=== PATIENT | female | born 1955 | race Caucasian/White ===

== ENCOUNTER 2017-01-11 07:15 | Day surgery (SDC) | payer OTHER ==
[~2017-01-11] VITALS: Ht 170.2 cm; Wt 75.3 kg
[~2017-01-11 07:15] MED LIST: AMIT75TA2 PO; ATEN25TA7; CALC-471; ETAN25DI SQ; FOL1; METH2.5T PO; MVI; Percocet; SERT100T; Sodium Chloride LOK Flush 10 mL Syringe IV PRN; fentaNYL-PF 50 mCg/mL 2 mL Inj IVPUSH PRN
[2017-01-11 07:49] VITALS: BP 141/86; PULSE 73; RESP 16; O2SAT 98
[2017-01-11] MEDS: 0.9% Sodium Chloride 1,000 ML IV PRN ×3 (07:56→09:20)
[2017-01-11 09:31] VITALS: BP 109/81; PULSE 65; RESP 14; O2SAT 98
[2017-01-11 09:41] VITALS: BP 133/88; PULSE 62; RESP 14; O2SAT 98
[2017-01-11 09:51] VITALS: BP 141/76; PULSE 59; RESP 14; O2SAT 99
[2017-01-11 10:01] VITALS: BP 133/77; PULSE 68; RESP 14; O2SAT 98
--- NOTE | 2017-01-11 16:16 | ENDO ---
[address] [address] ENDOSCOPY PROCEDURE PATIENT: JOVANY TOMPKINS : 1955 MR#: [id number] ADMIT: 01/11/2017 JOB ID: [id number] DATE: 01/11/2017 PRIMARY PROVIDER: ASHVIN Pruett PROCEDURE: Colonoscopy with cold snare polypectomy. INDICATIONS: A 61-year-old female who reports for colon cancer screening. EQUIPMENT: PCF H 180 AL. SEDATION: 1. 5 mg Versed. 2. 100 mcg fentanyl. COMPLICATIONS: None identified. BOWEL PREPARATION: Fair at best. PROCEDURAL INFORMATION: After the risks and benefits were explained, written and verbal informed consent was obtained. The patient was brought into the endoscopy suite and placed into the left lateral decubitus position. Sedation was achieved using the above-stated medications with the addition of oxygen via nasal cannula. A digital rectal examination was accomplished. No significant pathology appreciated. The scope was introduced into the rectum and advanced to the cecum as identified by the appendiceal orifice and ileocecal valve. The scope was slowly withdrawn to carefully examine the mucosa for any defects or lesions. Retroflexed views were avoided in the rectum. Multiple direct views were made through the dentate line for exclusion of pathology. The colon was decompressed. The scope removed the patient who tolerated the procedure well. FINDINGS: The patient had a fairly tortuous sigmoid region. There was some diverticulosis in this location. There was a diminutive perhaps 4-5 mm polyp removed with cold snare in the sigmoid. No other significant pathology was appreciated throughout. ENDOSCOPIC DIAGNOSIS: 1. Colon polyp. 2. Diverticulosis. RECOMMENDATIONS: 1. Await histopathology. 2. If this polyp is confirmed adenomatous, repeat colonoscopy five years.
--- NOTE | 2017-01-17 16:14 | PATH ---
SURGICAL PATHOLOGY Attending Physician:Betsy Sahni CASE STATUS: Signed Out * Amended * PATIENT NAME: JOVANY TOMPKINS PID: [id number] : 1955 DATE COLLECTED:01/11/2017 17:02 SPECIMEN: Colon, Biopsy CLINICAL HISTORY: COLON POLYP 1). SIGMOID COLON POLYP FINAL DIAGNOSIS: Sigmoid Colon, Polyp, Biopsy: Portions of tubular adenoma x2; negative for high-grade dysplasia. ICD10 K63.5 This case was reviewed and interpreted by Dr. Winnie Vasquez. The final diagnosis is unchanged. This amendment is issued in order for the report to cross the interface and be available in the hospital electronic medical record. GROSS DESCRIPTION: The specimen is received in one formalin filled container labeled with the patient's name, sublabeled "sigmoid colon polyp" and consists of 2 portions of tissue which aggregate to 0.5 x 0.5 x 0.3 CM. The specimen is entirely submitted in one cassette. 01/11/2017 [facility] ICD-9 CODES: CPT CODES: 1: 85356 AMENDMENT(S): Amended: 01/17/2017 by Mirna Titus Reason:Miscellaneous The final diagnosis is unchanged. This amendment is issued in order for the report to cross the interface and be available in the hospital electronic medical record. Previous Signout Date: 01/12/2017 Electronically Signed Out Penny Slaughter MD [facility] Pathology [facility], [place] [address] Technical component performed at [facility], [address] [place] [address] [address], [place], [address]
== END 2017-01-11 23:59 | disposition home or self-care (01) ==
LOC: END 07:15
PROVIDERS: ATTEND Internal Medicine Gastroenterology
DX: Z12.11 Encounter for screening for malignant neoplasm of colon (principal); D12.5 Benign neoplasm of sigmoid colon; K57.30 Diverticulosis of large intestine without perforation or abscess without bleeding; I10 Essential (primary) hypertension; F17.210 Nicotine dependence, cigarettes, uncomplicated; M06.9 Rheumatoid arthritis, unspecified; Z90.710 Acquired absence of both cervix and uterus